=== PATIENT | male | born 1990 | race American Indian/Alaskan Native ===

== ENCOUNTER 2019-06-22 13:15 | Emergency (ER) | payer MEDICAID, OTHER ==
[2019-06-22 13:31] VITALS: BP 153/86; PULSE 99
[2019-06-22] MEDS ORDERED: Ketorolac 30 MG/ML SDV IM ONE (13:49)
--- NOTE | 2019-06-22 14:45 | EDM.PDOC ---
Scribed by Emy Mendoza 06/22/19 1691 for Norman Ty MD ED HPI GENERAL MEDICAL PROBLEM - General Chief Complaint: Back Pain or Injury Stated Complaint: SLIPPED AND HURT BACK Time Seen by Provider: 06/22/19 13:40 Source of Information: Reports: Patient, RN, RN Notes Reviewed History Limitations: Reports: No Limitations - History of Present Illness INITIAL COMMENTS - FREE TEXT/NARRATIVE: Patient presents to ER stating he slipped 3 or 4 days ago and fell on his back. Patient states pain 10/10. Patient states he took Tylenol 5 tablets. Patient family unsure of strength. Denies radiating pain, loss of bowel or bladder control, motor weakness, or saddle area numbness. Onset Date: 06/19/19 Duration: Getting Worse Location: Reports: Back (mid to upper) Quality: Reports: Ache, Other (Spasm) Severity: Severe Improves with: Reports: Immobilization Worsens with: Reports: Movement Associated Symptoms: Reports: No Other Symptoms Treatments DIRECTOR CAMP: Reports: Acetaminophen Other Treatments DIRECTOR CAMP: 5 tablets Tylenol Middle Back Pain Score (Numeric/FACES): 10 - Related Data Allergies Allergy/AdvReac Type Severity Reaction Status Date / Time No Known Allergies Allergy Verified 06/22/19 14:04 Home Meds: Home Meds . [No Known Home Meds] 06/22/19 [History] Past Medical History - Past Health History Medical/Surgical History: Denies Medical/Surgical History HEENT History: Reports: None Cardiovascular History: Reports: None Respiratory History: Reports: None Gastrointestinal History: Reports: None Genitourinary History: Reports: None Musculoskeletal History: Reports: None Neurological History: Reports: None Psychiatric History: Reports: None Endocrine/Metabolic History: Reports: Obesity/BMI 30+ Hematologic History: Reports: None Immunologic History: Reports: None Oncologic (Cancer) History: Reports: None Dermatologic History: Reports: None - Infectious Disease History Infectious Disease History: Reports: None - Past Surgical History Head Surgeries/Procedures: Reports: None HEENT Surgical History: Reports: None Cardiovascular Surgical History: Reports: None Respiratory Surgical History: Reports: None GI Surgical History: Reports: None Male Surgical History: Reports: None Endocrine Surgical History: Reports: None Neurological Surgical History: Reports: None Musculoskeletal Surgical History: Reports: None Dermatological Surgical History: Reports: None Social & Family History - Family History Family Medical History: Noncontributory - Tobacco Use Smoking Status *Q: Never Smoker Second Hand Smoke Exposure: No - Caffeine Use Caffeine Use: Reports: Coffee - Recreational Drug Use Recreational Drug Use: No ED ROS GENERAL - Review of Systems Review Of Systems: Comprehensive ROS is negative, except as noted in HPI. ED EXAM, UPPER BACK/NECK PAIN - Physical Exam Exam: See Below Exam Limited By: No Limitations General Appearance: Alert, WD/WN, No Apparent Distress, Obese Nose Exam: Normal Inspection Throat/Mouth Exam: Normal Inspection Head Exam: Atraumatic, Normocephalic Neck Exam: Non-Tender, Full Range of Motion, Normal Alignment, Normal Inspection Nexus Criteria: No: Posterior, Midline Cervical Tenderness, Evidence of Intoxication, Altered Level of Consciousness, Focal Neurological Deficit, Painful Distraction Injuries Cardiovascular/Respiratory: Regular Rate, Rhythm GI/Abdominal: Normal Bowel Sounds, Soft, Non-Tender, No Organomegaly, No Distention, No Abnormal Bruit, No Mass Back Exam: Decreased Range of Motion (T&L spine regions), Muscle Spasm (T & L spine), Paraspinal Tenderness (T & L spine). No: CVA Tenderness (L), CVA Tenderness (R), Vertebral Tenderness Extremities: Normal Inspection, Normal Range of Motion, Non-Tender, No Pedal Edema, Normal Capillary Refill Neurologic: No Motor/Sensory Deficits, Alert, Normal Mood/Affect, Oriented x 3 Psychiatric: Normal Affect, Normal Mood Skin Exam: Normal Color, Warm/Dry Course - Vital Signs Last Recorded V/S: Last Vital Signs Temp 97.4 F 06/22/19 13:25 Pulse 99 06/22/19 13:25 Resp 18 06/22/19 13:25 BP 153/86 H 06/22/19 13:25 Pulse Ox 99 06/22/19 13:25 - Orders/Labs/Meds Orders: Active Orders 24 hr Category Date Time Status Lumbar Spine 2 or 3V [CR] Urgent Exams 06/22/19 13:50 Taken Thoracic Spine 2V [CR] Urgent Exams 06/22/19 13:50 Taken Meds: Medications Discontinued Medications Generic Name Dose Route Start Last Admin Trade Name Freq PRN Reason Stop Dose Admin Ketorolac Tromethamine 60 mg 06/22/19 13:49 06/22/19 14:20 Toradol IM 06/22/19 13:50 60 mg ONETIME ONE Administration Orphenadrine Citrate 60 mg 06/22/19 13:49 06/22/19 14:18 Norflex IM 06/22/19 13:50 60 mg ONETIME ONE Administration - Radiology Interpretation Free Text/Narrative:: XR T & L spines: no acute fractures or compressions, see Rad. report. Departure - Departure Time of Disposition: 14:42 Disposition: Home, Self-Care 01 Condition: Fair Clinical Impression: Thoracolumbar back pain, Muscle spasm of back - Discharge Information *PRESCRIPTION DRUG MONITORING PROGRAM REVIEWED*: No *COPY OF PRESCRIPTION DRUG MONITORING REPORT IN PATIENT VALENTINE: No Instructions: Acute Back Pain, Adult, Heat Therapy Forms: ED Department Discharge Additional Instructions: Rx: Naprosyn 500mg Rx: Cyclobenzaprine 10mg *Do not drive while under the influence of this medication. Moist heat packs to area of back pain or spasm. Activity as tolerated. Follow up in clinic if not improving as expected in 1 week. - My Orders Last 24 Hours: My Active Orders 06/22/19 13:50 Lumbar Spine 2 or 3V [CR] Urgent Thoracic Spine 2V [CR] Urgent - Assessment/Plan Last 24 Hours: My Active Orders 06/22/19 13:50 Lumbar Spine 2 or 3V [CR] Urgent Thoracic Spine 2V [CR] Urgent I have read and agree with the documentation that has been completed regarding this visit. By signing this record, I attest that the documentation was completed in my physical presence and is an accurate record of the encounter.
== END 2019-06-22 14:49 | disposition home or self-care (01) ==
LOC: DL.ED 13:15
DX: M62.830 Muscle spasm of back (principal); E66.9 Obesity, unspecified; Z68.42 Body mass index [BMI] 45.0-49.9, adult; W01.0XXA Fall on same level from slipping, tripping and stumbling without subsequent striking against object, initial encounter
CPT/HCPCS: 72070; 72100; 99283; J1885; J2360

== ENCOUNTER 2020-05-08 19:04 | Emergency (ER) | payer OTHER ==
[2020-05-08] MEDS ORDERED: Dexamethasone 4 MG/ML SDV IVPUSH ONE (19:18)
[2020-05-08] MEDS ORDERED: Albuterol/Ipratropium 3.0-0.5 MG/3 ML Neb Soln NEB ONE (19:21)
[2020-05-08] MEDS ORDERED: Sodium Chloride 0.9% 1,000 ML IV SCH (19:30)
--- NOTE | 2020-05-08 19:33 | EDM.PDOC ---
ED HPI GENERAL MEDICAL PROBLEM - General Chief Complaint: Respiratory Problem Stated Complaint: TROUBLE BREATHING Time Seen by Provider: 05/08/20 19:29 Source of Information: Reports: Patient History Limitations: Reports: No Limitations - History of Present Illness INITIAL COMMENTS - FREE TEXT/NARRATIVE: states been sick past few days and does use inhaler for bronchitis but not getting better. so came here - Related Data Allergies Allergy/AdvReac Type Severity Reaction Status Date / Time No Known Allergies Allergy Verified 06/22/19 14:04 Home Meds: Home Meds . [No Known Home Meds] 06/22/19 [History] Past Medical History - Past Health History Medical/Surgical History: Denies Medical/Surgical History HEENT History: Reports: None Cardiovascular History: Reports: None Respiratory History: Reports: None Gastrointestinal History: Reports: None Genitourinary History: Reports: None Musculoskeletal History: Reports: None Neurological History: Reports: None Psychiatric History: Reports: None Endocrine/Metabolic History: Reports: Obesity/BMI 30+ Hematologic History: Reports: None Immunologic History: Reports: None Oncologic (Cancer) History: Reports: None Dermatologic History: Reports: None - Infectious Disease History Infectious Disease History: Reports: None - Past Surgical History Head Surgeries/Procedures: Reports: None HEENT Surgical History: Reports: None Cardiovascular Surgical History: Reports: None Respiratory Surgical History: Reports: None GI Surgical History: Reports: None Male Surgical History: Reports: None Endocrine Surgical History: Reports: None Neurological Surgical History: Reports: None Musculoskeletal Surgical History: Reports: None Dermatological Surgical History: Reports: None Social & Family History - Family History Family Medical History: Noncontributory - Caffeine Use Caffeine Use: Reports: Coffee ED ROS GENERAL - Review of Systems Review Of Systems: Comprehensive ROS is negative, except as noted in HPI. ED EXAM, GENERAL - Physical Exam Exam: See Below Exam Limited By: No Limitations General Appearance: Alert, WD/WN, Mild Distress, Other (discomfort) Ears: Hearing Grossly Normal Throat/Mouth: Normal Voice, No Airway Compromise Head: Atraumatic Neck: Non-Tender, Full Range of Motion Respiratory/Chest: Decreased Breath Sounds, Rhonchi, Wheezing Cardiovascular: Regular Rate, Rhythm GI/Abdominal: Soft, Non-Tender (Male) Exam: Deferred Rectal (Males) Exam: Deferred Neurological: Alert, Oriented, Normal Cognition, Normal Gait, No Motor/Sensory Deficits Psychiatric: Normal Affect, Normal Mood Skin Exam: Warm, Dry, Normal Color Lymphatic: No Adenopathy Course - Vital Signs Last Recorded V/S: Last Vital Signs Temp 37.9 C 05/08/20 21:40 Pulse 110 H 05/08/20 21:40 Resp 26 H 05/08/20 21:40 BP 139/59 L 05/08/20 19:55 Pulse Ox 90 L 05/08/20 21:40 - Orders/Labs/Meds Orders: Active Orders 24 hr Category Date Time Status RT Aerosol Therapy [RC] ASDIRECTED Care 05/08/20 19:21 Active CULTURE BLOOD [BC] Stat Lab 05/08/20 19:46 Received TROPONIN I [CHEM] Stat Lab 05/08/20 19:46 Received NS + KCl 20mEq/L [Normal Saline with 20 mEq KCl] 1,000 Med 05/08/20 20:45 Active ml IV ASDIRECTED Sodium Chloride 0.9% [Normal Saline] 1,000 ml Med 05/08/20 19:30 Active IV ASDIRECTED Medication Orders Sodium Chloride (Normal Saline) 1,000 mls @ 500 mls/hr IV ASDIRECTED BRIAN Last Admin: 05/08/20 19:30 Dose: 500 mls/hr Documented by: DAY Potassium Chloride/Sodium Chloride (Normal Saline With 20 Meq Kcl) 1,000 mls @ 250 mls/hr IV ASDIRECTED BRIAN Last Admin: 05/08/20 20:46 Dose: 250 mls/hr Documented by: DAY Labs: Laboratory Tests 05/08/20 05/08/20 05/08/20 Range/Units 19:30 19:46 19:46 WBC 14.1 H (5.0-10.0) 10^3/uL RBC 4.12 L (4.6-6.2) 10^6/uL Hgb 12.0 L (14.0-18.0) g/dL Hct 37.2 L (40.0-54.0) % MCV 90.3 (80-100) fL MCH 29.1 (27.0-34.0) pg MCHC 32.3 L (33.0-35.0) g/dL Plt Count 306 (150-450) 10^3/uL Neut % (Auto) 92.8 H (42.2-75.2) % Lymph % (Auto) 4.0 L (20.5-50.1) % Moca % (Auto) 3.0 (2-8) % Eos % (Auto) 0.1 L (1.0-3.0) % Baso % (Auto) 0.1 (0.0-1.0) % D-Dimer, Quantitative (0-400) ng/mL Sodium 123 L (136-145) mmol/L Potassium 2.9 L (3.5-5.1) mmol/L Chloride 87 L (98-107) mmol/L Carbon Dioxide 25 (21-32) mmol/L Anion Gap 13.9 H (7-13) mEq/L BUN 2 L (7-18) mg/dL Creatinine 0.88 (0.70-1.30) mg/dL Est Cr Clr Drug Dosing 127.89 mL/min Estimated GFR (MDRD) > 60 BUN/Creatinine Ratio 2.3 (No establ ref range) Glucose 140 H (74-99) mg/dL Lactic Acid (0.4-2.0) mmol/L Calcium 7.6 L (8.5-10.1) mg/dL Total Bilirubin 1.9 H (0.2-1.0) mg/dL AST 381 H (15-37) U/L ALT 63 (16-63) U/L Alkaline Phosphatase 236 H (46-116) U/L Total Protein 7.4 (6.4-8.2) g/dL Albumin 2.1 L (3.4-5.0) g/dL Globulin 5.3 Albumin/Globulin Ratio 0.40 SARS CoV-2 RNA Rapid TAMARA Negative (NEGATIVE) 05/08/20 05/08/20 Range/Units 19:46 19:46 WBC (5.0-10.0) 10^3/uL RBC (4.6-6.2) 10^6/uL Hgb (14.0-18.0) g/dL Hct (40.0-54.0) % MCV (80-100) fL MCH (27.0-34.0) pg MCHC (33.0-35.0) g/dL Plt Count (150-450) 10^3/uL Neut % (Auto) (42.2-75.2) % Lymph % (Auto) (20.5-50.1) % Moca % (Auto) (2-8) % Eos % (Auto) (1.0-3.0) % Baso % (Auto) (0.0-1.0) % D-Dimer, Quantitative 1560 H (0-400) ng/mL Sodium (136-145) mmol/L Potassium (3.5-5.1) mmol/L Chloride (98-107) mmol/L Carbon Dioxide (21-32) mmol/L Anion Gap (7-13) mEq/L BUN (7-18) mg/dL Creatinine (0.70-1.30) mg/dL Est Cr Clr Drug Dosing mL/min Estimated GFR (MDRD) BUN/Creatinine Ratio (No establ ref range) Glucose (74-99) mg/dL Lactic Acid 3.5 H* (0.4-2.0) mmol/L Calcium (8.5-10.1) mg/dL Total Bilirubin (0.2-1.0) mg/dL AST (15-37) U/L ALT (16-63) U/L Alkaline Phosphatase (46-116) U/L Total Protein (6.4-8.2) g/dL Albumin (3.4-5.0) g/dL Globulin Albumin/Globulin Ratio SARS CoV-2 RNA Rapid TAMARA (NEGATIVE) Meds: Medications Generic Name Dose Route Start Last Admin Trade Name Freq PRN Reason Stop Dose Admin Sodium Chloride 1,000 mls @ 500 mls/hr 05/08/20 19:30 05/08/20 19:30 Normal Saline IV 500 mls/hr ASDIRECTED BRIAN Administration Potassium Chloride/Sodium Chloride 1,000 mls @ 250 mls/hr 05/08/20 20:45 05/08/20 20:46 Normal Saline With 20 Meq Kcl IV 250 mls/hr ASDIRECTED BRIAN Administration Discontinued Medications Generic Name Dose Route Start Last Admin Trade Name Freq PRN Reason Stop Dose Admin Albuterol/Ipratropium 3 ml 05/08/20 19:21 05/08/20 19:31 Duoneb 3.0-0.5 Mg/3 Ml NEB 05/08/20 19:22 3 ml ONETIME ONE Administration Dexamethasone 12 mg 05/08/20 19:18 05/08/20 19:25 Dexamethasone IVPUSH 05/08/20 19:19 12 mg ONETIME ONE Administration Potassium Chloride 40 meq 05/08/20 20:36 05/08/20 20:44 Klor-Con 10 PO 05/08/20 20:37 40 meq ONETIME ONE Administration Potassium Chloride Confirm 05/08/20 20:51 Klor-Con 10 Administered 05/08/20 20:52 Dose 10 meq .ROUTE .STK-MED ONE - Re-Assessments/Exams Free Text/Narrative Re-Assessment/Exam: 05/08/20 21:[address] Recinos @ [facility] who kindly accepted pt. Departure - Departure Time of Disposition: 21:46 Disposition: DC/Tfer to [place] [id number] Condition: Fair Clinical Impression: Hypoxia, Hyponatremia, Hypokalemia Pneumonia Qualifiers: Pneumonia type: due to unspecified organism Laterality: bilateral Lung location: unspecified part of lung Qualified Code(s): J18.9 - Pneumonia, unspecified organism - Discharge Information Forms: Interfacility Transfer EMTALA Sepsis Event Note (ED) - Focused Exam Vital Signs: Vital Signs Temp Pulse Resp BP Pulse Ox Pulse Ox 05/08/20 21:40 37.9 C 110 H 26 H 90 L 05/08/20 19:55 117 H 28 H 139/59 L 93 L 05/08/20 19:48 92 L 05/08/20 19:38 37.9 C 125 H 30 H 142/55 H 69 L - My Orders Last 24 Hours: My Active Orders 05/08/20 19:21 RT Aerosol Therapy [RC] ASDIRECTED 05/08/20 19:30 Sodium Chloride 0.9% [Normal Saline] 1,000 ml IV ASDIRECTED 05/08/20 19:46 CULTURE BLOOD [BC] Stat TROPONIN I [CHEM] Stat 05/08/20 20:45 NS + KCl 20mEq/L [Normal Saline with 20 mEq KCl] 1,000 ml IV ASDIRECTED - Assessment/Plan Last 24 Hours: My Active Orders 05/08/20 19:21 RT Aerosol Therapy [RC] ASDIRECTED 05/08/20 19:30 Sodium Chloride 0.9% [Normal Saline] 1,000 ml IV ASDIRECTED 05/08/20 19:46 CULTURE BLOOD [BC] Stat TROPONIN I [CHEM] Stat 05/08/20 20:45 NS + KCl 20mEq/L [Normal Saline with 20 mEq KCl] 1,000 ml IV ASDIRECTED
[2020-05-08 19:57] VITALS: BP 139/59
[2020-05-08 20:15] LABS: ANION GAP 13.9 mEq/L (7-13); CHLORIDE,CL 87 mmol/L (98-107); SODIUM,NA 123 mmol/L (136-145)
[2020-05-08] MEDS ORDERED: Potassium Chloride 10 MEQ Tab.ER PO ONE (20:36)
[2020-05-08] MEDS ORDERED: NS + KCl 20mEq/L 1,000 ML IV SCH (20:45)
[2020-05-08] MEDS ORDERED: Potassium Chloride 10 MEQ Tab.ER ONE (20:51)
--- NOTE | 2020-05-08 20:58 | CT ---
PROCEDURE INFORMATION: Exam: CT Chest Without Contrast Exam date and time: 05/08/2020 8:35 PM Age: 29 years old Clinical indication: Other: Rapid covid test came back negative, on 10 liters o2; Additional info: R/O covid pneumonia, hypoxia TECHNIQUE: Imaging protocol: Computed tomography of the chest without contrast. Radiation optimization: All CT scans at this facility use at least one of these dose optimization techniques: automated exposure control; mA and/or kV adjustment per patient size (includes targeted exams where dose is matched to clinical indication); or iterative reconstruction. COMPARISON: No relevant prior studies available. FINDINGS: Lungs: Extensive multifocal shaggy consolidation. It is not really masslike. There is no peripheral or central predilection. Pleural space: There is no significant effusion. No pneumothorax. No mass, plaque or calcification. Heart: Normal heart size. No pericardial effusion. Aorta: No aortic aneurysm. 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 Thoracic aorta and other great vessels are normal in caliber. Lymph nodes: No enlarged axillary, mediastinal, or hilar lymph nodes. Bones/joints: Age appropriate. No acute fracture. No suspicious lytic or osteosclerotic lesions. Soft tissues: Unremarkable. IMPRESSION: Pneumonia. Pattern is indeterminate for COVID-19 pneumonia. While this could be a manifestation of COVID-19 pneumonia, a variety of infectious and noninfectious processes can manifest similarly.
[2020-05-08 21:41] VITALS: PULSE 110
[2020-05-08] MEDS ORDERED: Azithromycin 500 MG in Sodium Chloride 0.9% 250 ML IV ONE (21:47)
[2020-05-08] MEDS ORDERED: cefTRIAXone 2 GM in Sodium Chloride 0.9% 100 ML IV ONE (21:51)
== END 2020-05-08 22:49 ==
LOC: DL.ED 19:04
DX: J18.9 Pneumonia, unspecified organism (principal); E87.6 Hypokalemia; R09.02 Hypoxemia; E87.1 Hypo-osmolality and hyponatremia; E66.9 Obesity, unspecified; Z68.42 Body mass index [BMI] 45.0-49.9, adult; Z20.828 Contact with and (suspected) exposure to other viral communicable diseases
CPT/HCPCS: 36415; 71250; 80053; 83605; 84484; 85025; 85379; 87040; 87635; 94640; 96365; 96366; 96368; 96375; 99285; A9270; J0456; J0696; J1100; J3480; J7030; J7050; J7620-GY; U0002